=== PATIENT | male | born 1975 ===

== ENCOUNTER 2020-03-19 23:01 | Emergency (ER) | payer SELFPAY ==
[2020-03-19 23:34] LABS: ABS Basophils 0.1 10^3/ul (0-0.2); ABS Eosinophils 0.1 10^3/ul (0-0.6); ABS Lymphocytes 1.5 10^3/ul (1.0-4.8); ABS Monocytes 0.7 10^3/ul (0-0.8); Eosinophil % 0.4 %; Hematocrit 46 % (42-52); Hemoglobin 15.7 g/dL (14.0-18.0); Lymphocyte % 11.2 %; Mean Corpuscular HGB Conc 34 g/dL (31-36); Mean Corpuscular Hemoglobin 34 pg (27-31); Mean Corpuscular Volume 98 fL (80-94); Mean Platelet Volume 8.9 fL (7.4-10.4); Platelet Count 174 10^3/uL (150-450); Red Blood Count 4.67 10^6 /uL (4.18-5.48); Red Cell Distribution Width 14 % (10-15); White Blood Count 13.1 10^3/uL (3.5-10.8)
[2020-03-19 23:50] LABS: ALT 269 U/L (7-52); AST 244 U/L (13-39); Albumin 4.3 g/dL (3.2-5.2); Albumin/Globulin Ratio 1.3 (1-3); Alkaline Phosphatase 117 U/L (34-104); Anion Gap 11 mmol/L (2-11); BUN/Creatinine Ratio 11.8 (8-20); Blood Urea Nitrogen 10 mg/dL (6-24); CO2 Carbon Dioxide 26 mmol/L (22-32); Calcium 9.6 mg/dL (8.6-10.3); Chloride 101 mmol/L (101-111); EGFR African American 118.5 (>60); EGFR Non-African American 97.9 (>60); Globulin 3.3 g/dL (2-4); Glucose 96 mg/dL (70-100); Potassium 4.2 mmol/L (3.5-5.0); Sodium 138 mmol/L (135-145); Total Protein 7.6 g/dL (6.4-8.9)
[2020-03-20 00:03] LABS: Acetaminophen < 15 mcg/mL; Alcohol, S 16 mg/dL (<10); Salicylate < 2.50 mg/dL (<30)
[2020-03-20 01:22] LABS: Urine Appearance Clear; Urine Bilirubin Negative (Negative); Urine Blood Negative (Negative); Urine Color Yellow; Urine Glucose Negative (Negative); Urine Ketones Negative (Negative); Urine Nitrite Negative (Negative); Urine Protein Negative (Negative); Urine Specific Gravity 1.015 (1.010-1.030); Urine Urobilinogen Negative (Negative)
[2020-03-20 01:48] LABS: Urine Benzodiazepine Screen None Detected (None Detect); Urine Opiates Screen None Detected (None Detect)
[2020-03-20 03:43] VITALS: BP 135/81
== END 2020-03-20 03:43 | disposition home or self-care (01) ==
LOC: ED 23:01